=== PATIENT | female | born 1995 | race Caucasian/White ===

== ENCOUNTER 2019-05-04 20:25 | Emergency (ER) | payer SELFPAY ==
[~2019-05-04] VITALS: Ht 160 cm; Wt 53.1 kg
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
[2019-05-04 21:19] VITALS: BP 150/92
== END 2019-05-04 21:19 | disposition home or self-care (01) ==
LOC: ER FS 20:27
DX: S01.01XA Laceration without foreign body of scalp, initial encounter (principal); S70.311A Abrasion, right thigh, initial encounter; S70.312A Abrasion, left thigh, initial encounter; V86.19XA Passenger of other special all-terrain or other off-road motor vehicle injured in traffic accident, initial encounter
CPT/HCPCS: 12002